=== PATIENT | female | born 1945 | race Caucasian/White ===

== ENCOUNTER 2017-10-15 06:25 | Day surgery (SDC) | payer OTHER, BC ==
[~2017-10-15] VITALS: Ht 152.4 cm; Wt 73.0 kg
[~2017-10-15 06:25] MED LIST: ASPIRIN81 M2 PO; BENADRYL25 MG PO; CARDIZEM CD120 M1 PO; PLAVIX75 MG PO; TYLENOL ARTHRI650 MG PO; ZOLOFT100 MG PO
== END 2017-10-15 13:15 | disposition home or self-care (01) ==
LOC: CATH 06:25
DX: I75.021 Atheroembolism of right lower extremity (principal); N28.9 Disorder of kidney and ureter, unspecified; I12.9 Hypertensive chronic kidney disease with stage 1 through stage 4 chronic kidney disease, or unspecified chronic kidney disease; N18.3 Chronic kidney disease, stage 3 (moderate); L97.929 Non-pressure chronic ulcer of unspecified part of left lower leg with unspecified severity; I48.91 Unspecified atrial fibrillation; F41.9 Anxiety disorder, unspecified; K21.9 Gastro-esophageal reflux disease without esophagitis; Z82.49 Family history of ischemic heart disease and other diseases of the circulatory system; F17.200 Nicotine dependence, unspecified, uncomplicated; Z79.02 Long term (current) use of antithrombotics/antiplatelets
CPT/HCPCS: C1725; C1760; C1769; C1894; J1200; J1644; J2250; J3010; S0020

== ENCOUNTER 2017-12-01 15:08 | Observation (INO) | payer OTHER, BC ==
[~2017-12-01] VITALS: Ht 152.4 cm; Wt 71.3 kg
[~2017-12-01 15:08] MED LIST changes: +BENADRYL ALLERG25 MG PO; -BENADRYL25 MG PO; -TYLENOL ARTHRI650 MG PO; +TYLENOL EXTRA500 MG PO; -ZOLOFT100 MG PO; +ZOLOFT25 MG PO
[2017-12-01 17:11] LABS: APPEARANCE CLEAR ((CLEAR)); BILIRUBIN NEGATIVE; BLOOD NEGATIVE; COLOR YELLOW ((YELLOW)); GLUCOSE (STRIP) NEGATIVE; KETONES NEGATIVE; LEUKOCYTES NEGATIVE; NITRITE NEGATIVE; PROTEIN (STRIP) NEGATIVE; SPECIFIC GRAVITY 1.011 (1.000-1.030); UROBILINOGEN 0.2 MG/DL (0.2-1.0)
[2017-12-01 17:44] LABS: HEMATOCRIT 24.6 % (36.0-46.0); HEMOGLOBIN 8.4 G/DL (11.9-15.5); MCH 32.4 PG (29.0-34.0); MCHC 34.1 G/DL (30.0-36.0); PLATELET COUNT 336 K/uL (156-360); RBC DIS.WIDTH-CV 13.9 % (11.8-14.6); RBC DIS.WIDTH-SD 48.2 % (39-53); RED BLOOD COUNT 2.59 M/uL (3.80-5.20); WHITE BLOOD COUNT 9.9 K/uL (4.1-10.2)
[2017-12-01 17:54] LABS: CHLORIDE 100 mEq/L (99-109); INTER. NORMALIZED RATIO 1.1; POTASSIUM 4.2 mEq/L (3.7-5.4); SODIUM 133 mEq/L (136-147)
[2017-12-01 17:55] LABS: GLUCOSE 94 mg/dL (70-99)
[2017-12-01 17:57] LABS: PTT 30.7 SEC (25-37)
[2017-12-01 17:59] LABS: CREATININE 0.7 mg/dL (0.6-1.3); GFR ESTIMATE (CALCULATED) > 59 mL/min/
[2017-12-01 18:00] LABS: UREA NITROGEN (BUN) 7 mg/dL (9-23)
[2017-12-01] MEDS ORDERED: ATARAX,VISTARIL50 MG PO (19:39)
[2017-12-01] MEDS ORDERED: COMBIVENT RESPIM4 GM IH (19:40)
[2017-12-01] MEDS ORDERED: LOVENOX80 MG/0.8 SC (19:40)
[2017-12-01] MEDS ORDERED: LIPITOR40 MG PO (19:40)
[2017-12-01 22:56] VITALS: BP 139/64
[2017-12-02 00:07] VITALS: BP 127/64
[2017-12-02 01:11] VITALS: BP 119/59
[2017-12-02 02:00] VITALS: BP 111/80
[2017-12-02 03:37] VITALS: BP 143/60
[2017-12-02 05:59] LABS: HEMATOCRIT 26.4 % (36.0-46.0); HEMOGLOBIN 8.6 G/DL (11.9-15.5); MCH 31.2 PG (29.0-34.0); MCHC 32.6 G/DL (30.0-36.0); MCV 95.7 FL (83-99); PLATELET COUNT 300 K/uL (156-360); RBC DIS.WIDTH-CV 14.6 % (11.8-14.6); RBC DIS.WIDTH-SD 50.4 % (39-53); RED BLOOD COUNT 2.76 M/uL (3.80-5.20); WHITE BLOOD COUNT 8.5 K/uL (4.1-10.2)
[2017-12-02 08:21] VITALS: BP 160/70
[2017-12-02 09:02] LABS: ALBUMIN 3.2 G/DL (3.2-4.8); ALKALINE PHOSPHATASE 111 IU/L (3-129); ALT (GPT) 10 IU/L (3-49); AST (GOT) 20 IU/L (2-34); CHLORIDE 101 MEQ/L (99-109); CREATININE 0.7 MG/DL (0.6-1.3); GFR ESTIMATE (CALCULATED) > 59 mL/min/; GLUCOSE 89 mg/dL (70-99); POTASSIUM 4.5 MEQ/L (3.7-5.4); SODIUM 132 MEQ/L (136-147); TOTAL BILIRUBIN 0.5 MG/DL (0.0-1.0); TOTAL PROTEIN 6.1 G/DL (6.4-8.3); UREA NITROGEN (BUN) 8 mg/dL (9-23)
[2017-12-02 11:39] LABS: HEMATOCRIT 29.1 % (36.0-46.0); HEMOGLOBIN 9.7 G/DL (11.9-15.5); MCV 94.2 FL (83-99)
[2017-12-02 11:41] VITALS: BP 146/64
== END 2017-12-02 15:22 | disposition home or self-care (01) ==
LOC: EME 15:08 → EDOF 20:36 → 3EAST 20:36 → ENRESERV 20:38 → 3EAST 22:14
PROVIDERS: Internal Medicine; Nurse Practitioner Family; Physician Assistant Medical
PROC: 30233N1 Transfusion of Nonautologous Red Blood Cells into Peripheral Vein, Percutaneous Approach (ICD-10-PCS; principal; 2017-12-02)
DX: D62 Acute posthemorrhagic anemia (principal); R06.02 Shortness of breath; I75.021 Atheroembolism of right lower extremity; I73.9 Peripheral vascular disease, unspecified; R91.8 Other nonspecific abnormal finding of lung field; I12.9 Hypertensive chronic kidney disease with stage 1 through stage 4 chronic kidney disease, or unspecified chronic kidney disease; N18.3 Chronic kidney disease, stage 3 (moderate); I48.0 Paroxysmal atrial fibrillation; E78.5 Hyperlipidemia, unspecified; G89.29 Other chronic pain; K21.9 Gastro-esophageal reflux disease without esophagitis; M19.90 Unspecified osteoarthritis, unspecified site; M48.061 Spinal stenosis, lumbar region without neurogenic claudication; M81.0 Age-related osteoporosis without current pathological fracture; F32.9 Major depressive disorder, single episode, unspecified; F41.9 Anxiety disorder, unspecified; Z86.718 Personal history of other venous thrombosis and embolism; Z88.0 Allergy status to penicillin; Z87.891 Personal history of nicotine dependence; Z79.82 Long term (current) use of aspirin
CPT/HCPCS: 71045; 80048; 80053; 81003; 85014; 85018; 85027; 85610; 85730; 86850; 86870; 86900; 86901; 86905; 86920; 93926; 94640; 99202; 99281; 99285; G0378; J1200; J1650; P9016

== ENCOUNTER → 2018-01-04 | Outpatient (CLI) | payer OTHER, BC ==
[~2018-01-04] VITALS: Ht 160 cm; Wt 70.3 kg
[~2018-01-04] MED LIST changes: +ANORO ELLIPTA1 EACH IH; +ATARAX,VISTARIL50 MG PO; +COMBIVENT RESPIM4 GM IH; +IRON; +LIPITOR40 MG PO; +LOVENOX80 MG/0.8 SC; +LYRICA50 MG PO; +ONE DAILY MULT1 EACH PO; +PROAIR HFA8.5 GM IH; +VITAMIN C250 MG PO
[2018-01-04 14:24] VITALS: BP 114/56
[2018-01-04 15:04] VITALS: BP 131/63
[2018-01-04 16:12] VITALS: BP 140/60
[2018-01-04 16:43] VITALS: BP 145/68
== END | disposition home or self-care (01) ==
LOC: IVINF 13:38
DX: D64.9 Anemia, unspecified (principal)
CPT/HCPCS: 36430; 86920; 86999

== ENCOUNTER → 2018-02-11 | Outpatient (CLI) | payer OTHER, BC ==
[~2018-02-11] MED LIST changes: +CEFTIN500 MG PO
[2018-02-11 09:31] LABS: HEMATOCRIT 30.1 % (36.0-46.0); HEMOGLOBIN 9.9 G/DL (11.9-15.5); MCH 31.4 PG (29.0-34.0); MCHC 32.9 G/DL (30.0-36.0); MCV 95.6 FL (83-99); RBC DIS.WIDTH-CV 15.4 % (11.8-14.6); RBC DIS.WIDTH-SD 53.2 % (39-53); RED BLOOD COUNT 3.15 M/uL (3.80-5.20); WHITE BLOOD COUNT 12.2 K/uL (4.1-10.2)
[2018-02-11 09:38] LABS: INTER. NORMALIZED RATIO 1.4
[2018-02-11 09:41] LABS: PTT 26.8 SEC (25-37)
[2018-02-11 10:37] LABS: PLATELET COUNT UNABLE TO REPORT K/uL (156-360)
[2018-02-11 10:38] LABS: PLAT.SUFFICIENCY INCREASED
== END | disposition home or self-care (01) ==
LOC: OPR 08:31 → EDSTATUS 09:00 → OPR 09:00
PROVIDERS: Internal Medicine Hematology & Oncology
PROC: 0BBJ3ZX Excision of Left Lower Lung Lobe, Percutaneous Approach, Diagnostic (ICD-10-PCS; principal; 2018-02-11)
DX: C34.32 Malignant neoplasm of lower lobe, left bronchus or lung (principal); Z87.891 Personal history of nicotine dependence; I31.3 Pericardial effusion (noninflammatory); D64.9 Anemia, unspecified; I12.9 Hypertensive chronic kidney disease with stage 1 through stage 4 chronic kidney disease, or unspecified chronic kidney disease; N18.3 Chronic kidney disease, stage 3 (moderate); I48.91 Unspecified atrial fibrillation; K21.9 Gastro-esophageal reflux disease without esophagitis; E78.5 Hyperlipidemia, unspecified; I73.9 Peripheral vascular disease, unspecified; Z80.3 Family history of malignant neoplasm of breast; Z82.5 Family history of asthma and other chronic lower respiratory diseases; Z80.6 Family history of leukemia; Z79.01 Long term (current) use of anticoagulants
CPT/HCPCS: 71045; 77012; 85027; 85610; 85730; 88305; 88341 TC; 88342 TC; J3010